=== PATIENT | female | born 1985 | race Two or more races ===

== ENCOUNTER 2016-07-29 20:58 | Observation (INO) | payer MEDICAID ==
[2016-07-29] MEDS ORDERED: PRENA1 CHEW TA1.4 M1 PO (21:32)
[2016-07-29 21:41] LABS: BASO % 0.2 % (0-2); EOS % 0.5 % (0-7); HCT-HEMATOCRIT 35.6 % (34.0-49.0); IMMATURE GRANULOCYTES ABSOLUTE 0.04 tho/cmm (0-0.03); IMMATURE GRANULOCYTES PERCENT 0.6 % (0-0.3); LYMPH % 35.1 % (20-45); LYMPH ABSOLUTE COUNT 2.2 tho/cmm (0.8-4.5); MCHC MEAN CORPUSCULAR HGB CONC 33.7 % (32.0-36.0); MCV (MEAN CELL VOLUME) 97.8 fl (82.0-96.0); MEAN PLATELET VOLUME 10.6 cmc (9.4-12.4); MONO % 6.8 % (0-12); MONOCYTE ABSOLUTE COUNT 0.4 tho/cmm (0.0-1.2); NEUTROPHIL ABSOLUTE COUNT 3.6 tho/cmm (1.6-8.0); NEUTROPHIL-AUTOMATED 3.6 tho/cmm (1.6-8.0); NEUTROPHILS % 56.8 % (40-80); PLATELET COUNT 206 tho/cmm (150-450); RED BLOOD COUNT 3.64 mil/cmm (4.00-5.20); RED CELL DISTRIBUTION WIDTH 13.2 % (12.4-16.4); WHITE BLOOD COUNT 6.3 tho/cmm (4.0-10.0)
== END 2016-07-30 10:10 ==
LOC: LDR 20:58
PROVIDERS: ADMIT Family Medicine
DX: O09.893 Supervision of other high risk pregnancies, third trimester (principal); Z3A.39 39 weeks gestation of pregnancy

== ENCOUNTER 2016-08-11 21:02 | Inpatient (IN) | payer MEDICAID ==
[~2016-08-11 21:02] MED LIST: PRENA1 CHEW TA1.4 M1 PO
[2016-08-11 21:34] LABS: BASO % 0.2 % (0-2); EOS % 1.6 % (0-7); EOSINOPHIL ABSOLUTE COUNT 0.1 tho/cmm (0.0-0.7); HCT-HEMATOCRIT 36.9 % (34.0-49.0); HGB-HEMOGLOBIN 12.7 gm/dl (12.0-15.5); IMMATURE GRANULOCYTES ABSOLUTE 0.05 tho/cmm (0-0.03); IMMATURE GRANULOCYTES PERCENT 0.8 % (0-0.3); LYMPH % 38.5 % (20-45); LYMPH ABSOLUTE COUNT 2.4 tho/cmm (0.8-4.5); MCH (MEAN CORPUSCULAR HGB) 33.2 pg (28.0-32.0); MCHC MEAN CORPUSCULAR HGB CONC 34.4 % (32.0-36.0); MCV (MEAN CELL VOLUME) 96.3 fl (82.0-96.0); MEAN PLATELET VOLUME 10.8 cmc (9.4-12.4); MONO % 8.9 % (0-12); MONOCYTE ABSOLUTE COUNT 0.6 tho/cmm (0.0-1.2); NEUTROPHIL ABSOLUTE COUNT 3.1 tho/cmm (1.6-8.0); NEUTROPHIL-AUTOMATED 3.1 tho/cmm (1.6-8.0); PLATELET COUNT 197 tho/cmm (150-450); RED BLOOD COUNT 3.83 mil/cmm (4.00-5.20); RED CELL DISTRIBUTION WIDTH 13.3 % (12.4-16.4); WHITE BLOOD COUNT 6.2 tho/cmm (4.0-10.0)
[2016-08-14] MEDS ORDERED: PERCOCET 5-3251 EACH PO (01:46)
[2016-08-14 06:14] LABS: HGB-HEMOGLOBIN 9.4 gm/dl (12.0-15.5)
[2016-08-15] MEDS ORDERED: FEOSOL325 M1 PO (12:44)
[2016-08-15] MEDS ORDERED: IBUPROFEN800 M1 PO (12:46)
== END 2016-08-15 14:45 | DRG 766 ==
LOC: LDR 21:02 → OBGD 08-13 12:05
PROVIDERS: Obstetrics & Gynecology Maternal & Fetal Medicine; ADMIT Family Medicine
PROC: 10907ZC Drainage of Amniotic Fluid, Therapeutic from Products of Conception, Via Natural or Artificial Opening (ICD-10-PCS; principal; 2016-08-13)
PROC: 10D00Z1 Extraction of Products of Conception, Low, Open Approach (ICD-10-PCS; 2016-08-13)
DX: O48.0 Post-term pregnancy (principal); O32.4XX0 Maternal care for high head at term, not applicable or unspecified; Z37.0 Single live birth; Z3A.41 41 weeks gestation of pregnancy; O77.0 Labor and delivery complicated by meconium in amniotic fluid; O62.1 Secondary uterine inertia; O75.81 Maternal exhaustion complicating labor and delivery; O33.9 Maternal care for disproportion, unspecified
CPT/HCPCS: J0690; J2270; J2370; J2590; J3010; J7121